=== PATIENT | female | born 1985 | race Caucasian/White ===

== ENCOUNTER 2021-11-05 06:51 | Inpatient (IN) | payer MEDICAID, OTHER ==
[~2021-11-05] VITALS: Ht 165.1 cm; Wt 79.4 kg
[2021-11-05] MEDS ORDERED: MORPHINE SULFATE/PF 1MG/ML 10ML AMP ONE (07:34)
[2021-11-05] MEDS ORDERED: OXYTOCIN 10 UNITS/ML 1ML ONE ×4 (07:37→08:57)
[2021-11-05] MEDS ORDERED: PHENYLEPHRINE HCL 10 MG/ML 1ML (IV VIAL) IV ONE (07:42)
[2021-11-05] MEDS ORDERED: LACTATED RINGERS 1,000 ML IV SCH (08:00)
[2021-11-05] MEDS ORDERED: NALOXONE HCL 0.4 MG/ML 1ML VIAL IM PRN (08:00)
[2021-11-05] MEDS ORDERED: METHYLERGONOVINE MALEATE 0.2 MG/ML IM PRN ×2 (08:00→12:15)
[2021-11-05] MEDS ORDERED: OXYTOCIN 30 UNITS/500ML NS PMX 500 ML IV SCH ×2 (08:00→13:30)
[2021-11-05] MEDS ORDERED: MISOPROSTOL 200MCG TABLET VG SCH (08:00)
[2021-11-05] MEDS ORDERED: CARBOPROST TROMETHAMINE 250 MCG/ML AMPUL IM PRN (08:00)
[2021-11-05] MEDS ORDERED: FENTANYL CITRATE/PF 50MCG/ML 5ML VIAL ONE (08:34)
[2021-11-05 08:39] LABS: BASOPHILS % 0.3 % (0.0-2.0); EOSINOPHILS % 1.6 % (0.0-5.0); LYMPHOCYTES % 20.6 % (20.0-50.0); MEAN CORPUSCULAR HEMOGLOBIN 33.1 pg (28.0-32.0); MONOCYTES % 7.8 % (2.0-8.0); NEUTROPHILS % 69.7 % (40.0-76.0); PLATELET 116 x1000/uL (130-400); RED BLOOD CELL COUNT 3.92 mill/uL (4.2-5.4); RED CELL DISTRIBUTION WIDTH 14.3 % (11.6-14.6)
[2021-11-05 08:51] LABS: INR 0.9; PARTIAL THROMBOPLASTIN TIME 26.4 sec (23.4-31.0); PROTHROMBIN TIME 9.8 sec (9.6-11.0)
[2021-11-05] MEDS ORDERED: KETOROLAC 60MG/2ML VIAL IM ONE (08:53)
[2021-11-05] MEDS ORDERED: DEXAMETHASONE 4MG/ML 1ML VIAL ONE (08:53)
[2021-11-05] MEDS ORDERED: ONDANSETRON HCL 4MG/2ML INJ ONE (08:53)
[2021-11-05] MEDS ORDERED: MISOPROSTOL 200MCG TABLET ONE (09:58)
[2021-11-05] MEDS ORDERED: METHYLERGONOVINE MALEATE 0.2 MG/ML ONE (09:58)
[2021-11-05] MEDS ORDERED: MORPHINE SULFATE 4 MG/ML CPJ (NOT FOR IM USE) IV PRN (11:00)
[2021-11-05] MEDS ORDERED: NALOXONE HCL 0.4 MG/ML 1ML VIAL IV PRN (11:00)
[2021-11-05] MEDS ORDERED: FENTANYL CITRATE/PF 50MCG/ML 2ML VIAL IV PRN (11:00)
[2021-11-05 11:05] LABS: HEPATITIS B SURFACE ANTIGEN NEGATIVE
[2021-11-05] MEDS ORDERED: TRANEXAMIC ACID 1,000 MG/10 ML IV ONE (12:15)
[2021-11-05] MEDS ORDERED: TRANEXAMIC ACID 1,000 MG in SODIUM CHLORIDE 0.9% 100 ML IV NR (12:30)
[2021-11-05] MEDS ORDERED: MISOPROSTOL 200MCG TABLET PO SCH (13:00)
[2021-11-05] MEDS ORDERED: IBUPROFEN 400MG TABLET PO PRN (13:30)
[2021-11-05] MEDS ORDERED: BISACODYL 10MG SUPP PR PRN (13:30)
[2021-11-05] MEDS ORDERED: RHO(D) IMMUNE GLOBULIN 300 MCG/SYR IM PRN (13:30)
[2021-11-05] MEDS ORDERED: LANOLIN OINT 7GM TUBE TOP PRN (13:30)
[2021-11-05 14:38] LABS: HEMATOCRIT. 22.8 % (36.0-48.0); HEMOGLOBIN. 7.7 g/dL (12.0-16.0); MEAN CORPUSCULAR HEMOGLOBIN 33.5 pg (28.0-32.0); MEAN CORPUSCULAR VOLUME 99.4 fL (81.0-99.0); MEAN PLATELET VOLUME 9.9 fl (7.4-10.4); PLATELET 100 x1000/uL (130-400); RED BLOOD CELL COUNT 2.29 mill/uL (4.2-5.4); RED CELL DISTRIBUTION WIDTH 14.2 % (11.6-14.6)
[2021-11-05 15:00] VITALS: BP 96/53
[2021-11-05 15:05] LABS: PLATELET ESTIMATE SLIGHTLY DECREASED
[2021-11-05 15:15] VITALS: BP 95/55
[2021-11-05 15:45] VITALS: BP 96/57
[2021-11-05 20:00] VITALS: BP 96/55
[2021-11-05] MEDS ORDERED: DIPHENHYDRAMINE 25MG CAPSULE PO PRN (21:00)
[2021-11-06] VITALS (10 sets, daily range): BP systolic 95–112; BP diastolic 50–63
[2021-11-06 06:52] LABS: BASOPHILS % 0.2 % (0.0-2.0); EOSINOPHILS % 0.3 % (0.0-5.0); LYMPHOCYTES % 11.6 % (20.0-50.0); MEAN CORPUSCULAR HEMOGLOBIN 34.6 pg (28.0-32.0); MEAN CORPUSCULAR VOLUME 98.6 fL (81.0-99.0); MEAN PLATELET VOLUME 9.4 fl (7.4-10.4); MONOCYTES % 8.8 % (2.0-8.0); NEUTROPHILS % 79.1 % (40.0-76.0); PLATELET 89 x1000/uL (130-400); RED BLOOD CELL COUNT 1.61 mill/uL (4.2-5.4); RED CELL DISTRIBUTION WIDTH 14.2 % (11.6-14.6)
[2021-11-06 07:01] LABS: HEMATOCRIT. 15.9 % (36.0-48.0); HEMOGLOBIN. 5.6 g/dL (12.0-16.0)
[2021-11-06] MEDS: SIMETHICONE 80MG TABLET CHEW PO SCH ×4 (08:00→21:50)
[2021-11-06] MEDS: KETOROLAC 30MG/ML VIAL IV PRN (08:37)
[2021-11-06] MEDS: FERROUS SULFATE 325MG TABLET PO SCH (13:46)
[2021-11-06] MEDS: PRENATAL VIT/FE FUMARATE/FA TABLET PO SCH (13:46)
[2021-11-06] MEDS: IBUPROFEN 800MG TABLET PO PRN ×2 (13:47→21:50)
[2021-11-06] MEDS: DOCUSATE SODIUM 100MG CAPSULE PO SCH (21:49)
[2021-11-07] VITALS: BP 105/61
[2021-11-07 04:00] VITALS: BP 112/76
[2021-11-07 06:46] LABS: BASOPHILS % 0.2 % (0.0-2.0); EOSINOPHILS % 1.4 % (0.0-5.0); HEMATOCRIT. 22.1 % (36.0-48.0); HEMOGLOBIN. 7.9 g/dL (12.0-16.0); LYMPHOCYTES % 13.2 % (20.0-50.0); MEAN CORPUSCULAR HEMOGLOBIN 33.9 pg (28.0-32.0); MEAN CORPUSCULAR VOLUME 94.8 fL (81.0-99.0); MEAN PLATELET VOLUME 8.8 fl (7.4-10.4); MONOCYTES % 6.4 % (2.0-8.0); NEUTROPHILS % 78.8 % (40.0-76.0); PLATELET 113 x1000/uL (130-400); RED BLOOD CELL COUNT 2.33 mill/uL (4.2-5.4); RED CELL DISTRIBUTION WIDTH 15.7 % (11.6-14.6)
[2021-11-07] MEDS: FERROUS SULFATE 325MG TABLET PO SCH ×3 (07:30→17:30)
[2021-11-07 08:10] VITALS: BP 133/76
[2021-11-07] MEDS: PRENATAL VIT/FE FUMARATE/FA TABLET PO SCH (09:00)
[2021-11-07] MEDS: ONDANSETRON HCL 4MG/2ML INJ IV PRN ×2 (09:22→16:41)
[2021-11-07] MEDS: KETOROLAC 30MG/ML VIAL IV PRN (09:23)
[2021-11-07 12:00] VITALS: BP 110/72
[2021-11-07 16:00] VITALS: BP 135/77
[2021-11-07] MEDS: CAFFEINE 200MG TABLET PO PRN (18:56)
[2021-11-07 19:30] VITALS: BP 112/76
[2021-11-07] MEDS: DOCUSATE SODIUM 100MG CAPSULE PO SCH (21:33)
[2021-11-08] VITALS (7 sets, daily range): BP systolic 115–133; BP diastolic 73–83
[2021-11-08] MEDS: CAFFEINE 200MG TABLET PO PRN ×3 (02:14→15:06)
[2021-11-08] MEDS: IBUPROFEN 800MG TABLET PO PRN ×2 (06:07→15:06)
[2021-11-08] MEDS: SIMETHICONE 80MG TABLET CHEW PO SCH ×4 (08:00→21:42)
[2021-11-08] MEDS ORDERED: ACETAMINOPHEN 325MG TABLET PO PRN (09:30)
[2021-11-08] MEDS: PRENATAL VIT/FE FUMARATE/FA TABLET PO SCH (10:10)
[2021-11-08] MEDS: FERROUS SULFATE 325MG TABLET PO SCH ×3 (10:10→17:30)
[2021-11-08] MEDS: DOCUSATE SODIUM 100MG CAPSULE PO SCH (21:42)
[2021-11-09 04:00] VITALS: BP 149/88
[2021-11-09] MEDS: CAFFEINE 200MG TABLET PO PRN (04:10)
[2021-11-09] MEDS: IBUPROFEN 800MG TABLET PO PRN ×2 (04:11→10:37)
[2021-11-09 05:30] VITALS: BP 138/87
[2021-11-09] MEDS ORDERED: IBUP-2030 PO (07:47)
[2021-11-09] MEDS ORDERED: DOCU-150 PO (07:47)
[2021-11-09] MEDS ORDERED: PREN1CAP28 MT (07:47)
[2021-11-09] MEDS ORDERED: FERR-63 PO (07:47)
[2021-11-09 08:00] VITALS: BP 111/77
[2021-11-09] MEDS: FERROUS SULFATE 325MG TABLET PO SCH (08:41)
[2021-11-09] MEDS: PRENATAL VIT/FE FUMARATE/FA TABLET PO SCH (08:41)
== END 2021-11-09 12:30 | disposition home or self-care (01) | DRG 540 ==
LOC: OBSVTOIN 06:51 → 8 EST LDRP 06:51 → 8EST 14:45
PROVIDERS: ADMIT Obstetrics & Gynecology; ATTEND Obstetrics & Gynecology
PROC: 10D00Z1 Extraction of Products of Conception, Low, Open Approach (ICD-10-PCS; principal; 2021-11-05)
PROC: 3E0R3BZ Introduction of Anesthetic Agent into Spinal Canal, Percutaneous Approach (ICD-10-PCS; 2021-11-06)
PROC: 30233N1 Transfusion of Nonautologous Red Blood Cells into Peripheral Vein, Percutaneous Approach (ICD-10-PCS; 2021-11-06)
DX: O99.02 Anemia complicating childbirth (principal); O99.324 Drug use complicating childbirth; O30.003 Twin pregnancy, unspecified number of placenta and unspecified number of amniotic sacs, third trimester; Z37.2 Twins, both liveborn; O32.1XX2 Maternal care for breech presentation, fetus 2; O89.4 Spinal and epidural anesthesia-induced headache during the puerperium; Z20.822 Contact with and (suspected) exposure to COVID-19; F19.90 Other psychoactive substance use, unspecified, uncomplicated; Z3A.39 39 weeks gestation of pregnancy
CPT/HCPCS: 36415; 85025; 85049; 86592; 86703; 86762; 86850; 86900; 86920; 87340; 87426; 88307; 93970; 99281; J1100; J1885; J2210; J2274; J2370; J2405; J3010; J7030; J7050; J7120; P9016; J2590